=== PATIENT | male | born 1985 | race Hispanic/Latino ===

== ENCOUNTER 2017-10-15 10:18 | Inpatient (IN) | payer MEDICARE, MEDICAID ==
[2017-10-15 10:28] VITALS: BMI 22.6
--- NOTE | 2017-10-15 10:32 | ED PDOC ---
Arrival/HPI - General Time Seen by Provider: 10/15/17 10:24 Historian: Patient, EMS - History of Present Illness Narrative History of Present Illness (Text): 10/15/17 10:20 Valentin Carroll is a 32 year old male, whose past medical history include migraines and psoriatic arthritis, who presents to the emergency department by transfer from [facility] for psych admission. Patient needs evaluation for suicidal ideation. Patient denies HI and is currently asymptomatic. Time/Duration: Prior to Arrival Symptom Onset: Sudden Symptom Course: Unchanged Context: Other (transfer) Past Medical History - Provider Review Nursing Documentation Reviewed: Yes - Tetanus Immunization Tetanus Immunization: Unknown - Cardiac Hx Cardiac Disorders: No - Pulmonary Hx Respiratory Disorders: No Hx Asthma: Yes (Pro Air and Symacort) - Neurological Hx Neurological Disorder: No Hx Seizures: No - HEENT Hx HEENT Disorder: No - Renal Hx Renal Disorder: No - Endocrine/Metabolic Hx Endocrine Disorders: No - Hematological/Oncological Hx Blood Disorders: No - Integumentary Hx Dermatological Disorder: No Hx Psoriasis: No - Musculoskeletal/Rheumatological Hx Musculoskeletal Disorders: No - Gastrointestinal Hx Gastrointestinal Disorders: No Hx Diverticulitis: No - Genitourinary/Gynecological Hx Genitourinary Disorders: No - Psychiatric Hx Psychophysiologic Disorder: No Hx Anxiety: No Hx Depression: No Hx Substance Use: No - Surgical History Hx Amputation: No Hx Appendectomy: No Hx Cardiac Catheterization: No Hx Cholecystectomy: No Hx Coronary Stent: No Hx Gastric Bypass Surgery: No Hx Hysterectomy: No Hx Joint Replacement: No Hx Kidney Transplant: No Hx Liver Transplant: No Hx Mastectomy: No Hx Musculoskeletal Surgery: No Hx Open Heart Surgery: No Hx Orthopedic Surgery: No Hx Splenectomy: No Hx Valve Replacement: No - Anesthesia Hx Anesthesia: No - Suicidal Assessment Feels Threatened In Home Enviroment: No Family/Social History - Physician Review Nursing Documentation Reviewed: Yes Family/Social History: Unknown Family HX Smoking Status: Never Smoked Hx Alcohol Use: No Hx Substance Use: No Allergies/Home Meds Allergies/Adverse Reactions: Allergies haloperidol [From Haldol] Allergy (Verified 03/11/16 05:17) RASH haloperidol lactate [From Haldol] Allergy (Verified 03/11/16 05:17) RASH Penicillins Allergy (Verified 10/15/17 10:27) ANAPHYLAXIS Review of Systems - Review of Systems Constitutional: absent: Fevers Respiratory: absent: SOB Cardiovascular: absent: Chest Pain Gastrointestinal: absent: Abdominal Pain Genitourinary Male: absent: Dysuria Musculoskeletal: absent: Back Pain Skin: absent: Rash Neurological: absent: Headache Endocrine: absent: Diaphoresis Psychiatric: Suicidal Ideation. absent: Anxiety Physical Exam Vital Signs Reviewed: Yes Vital Signs Temp Pulse Resp BP Pulse Ox 10/15/17 10:28 98.2 F 93 H 18 127/74 99 Appearance: Positive for: Well-Appearing, Non-Toxic, Comfortable Pain Distress: None Mental Status: Positive for: Alert and Oriented X 3 - Systems Exam Head: Present: Atraumatic, Normocephalic Pupils: Present: PERRL Extroacular Muscles: Present: EOMI Conjunctiva: Present: Normal Neck: Present: Normal Range of Motion Respiratory/Chest: Present: Clear to Auscultation, Good Air Exchange. No: Respiratory Distress, Accessory Muscle Use Cardiovascular: Present: Regular Rate and Rhythm, Normal S1, S2. No: Murmurs Abdomen: Present: Normal Bowel Sounds. No: Tenderness, Distention, Peritoneal Signs Neurological: Present: GCS=15, CN II-XII Intact, Speech Normal Skin: Present: Warm, Dry, Normal Color. No: Rashes Psychiatric: Present: Alert, Oriented x 3, Normal Insight, Normal Concentration , Suicidal Ideation. No: Homicidal Ideation Medical Decision Making ED Course and Treatment: 10/15/17 Impression: 32 year old male with suicidal ideation, no HI. currently asymptomatic Differential Diagnosis included but are not limited to: psych Plan: -- Reassess and disposition Progress Notes: 10/15/17 Patients Chest X-ray and Labs were reviewed by Dr. Hallman, which determine patient is medically clear for transfer to [facility]. I reviewed the paperwork on arrival and patient is medically cleared for admission to Psych. Patient will be admitted under Dr. Emily boateng for evaluation. EKG: Ordered, reviewed, and independently interpreted the EKG. Rate : 80 BPM Rhythm : NSR Interpretation : No ST-segment elevations or depressions, no T-wave inversions, normal intervals. - Lab Interpretations I have reviewed the lab results: Yes - EKG Interpretation Interpreted by ED Physician: Yes Type: 12 lead EKG - Scribe Statement The provider has reviewed the documentation as recorded by the Tigist Dominguez Provider Scribe Attestation: All medical record entries made by the Scribe were at my direction and personally dictated by me. I have reviewed the chart and agree that the record accurately reflects my personal performance of the history, physical exam, medical decision making, and the department course for this patient. I have also personally directed, reviewed, and agree with the discharge instructions and disposition. Disposition/Present on Arrival - Present on Arrival Any Indicators Present on Arrival: No History of DVT/PE: No History of Uncontrolled Diabetes: No Urinary Catheter: No History Surgical Site Infection Following: None - Disposition Have Diagnosis and Disposition been Completed?: Yes Diagnosis: Suicidal ideation Disposition: HOSPITALIZED Disposition Time: 10:38 Patient Plan: Admission Condition: FAIR Referrals: Indu Bee, [Primary Care Provider] - Follow up with primary
[2017-10-15 10:37] VITALS: O2SAT 99
[2017-10-15] MEDS: buPROPion 150 mg/24 Hours XL Tab PO SCH (13:29)
[2017-10-15] MEDS: Divalproex 250 mg DR (BID formulation) PO SCH (15:23)
[2017-10-15] MEDS: Fluticasone-Salmeterol 100-50mcg Diskus IH SCH (17:59)
[2017-10-15] MEDS ORDERED: Fluticasone-Salmeterol 100-50mcg Diskus IH SCH (18:00)
--- NOTE | 2017-10-15 18:30 | PCM.BM ---
<Analisa Scott - Last Filed: 10/15/17 18:27> Treatment Plan Problems - Problems identified on initial assessmt Problem 1 Date Initiated: 10/15/17 Anxiety Date Initiated: 10/15/17 Time Initiated: 13:00 Assessment reference: NA Status: Active Priority: 1 Comment: Manifested by pacing on unit, restlessness. Altered Thoughts Date Initiated: 10/15/17 Time Initiated: 13:00 Assessment reference: NA Status: Active Priority: 2 Treatment assets and liabiliti Patient Assests: insightful, motivated, physically healthy, negotiates basic needs Patient Liabilities: relationship conflicts - Milieu Protocol Maintain good personal hygiene: daily Encourage regular showers, daily Assist patient to perform ADL's, every shift Remind patient to perform daily oral care Maintain personal safety: every shift Educate patient to report safety concerns to staff, every shift Monitor environment for contraband/sharps Medication safety: Monitor for expected outcome, potential side effects: every shift, Assess barriers to learning: every shift, Assess readiness for medication education: every shift Family Contact Family contact: Patient agrees to contact Family contact name: Montserrat Carroll Family contact comment: Mother: Montserrat Carroll Discharge/Continuing Care - Education Needs Education Needs: Patient Medication, Patient Coping Skills, Patient Anger Management skills, Patient Health Practices/Safety, Patient Personal Hygiene/ Grooming, Patient Aftercare Safety Plan <Leatha Hopkins - Last Filed: 10/16/17 16:22> - Diagnosis (1) Schizoaffective disorder Status: Chronic Interventions: Medication management 10/16/17 16:23 <Nikkie Pope - Last Filed: 10/20/17 14:32> Family Contact - Outside Agency [facility] involvment: Information-sharing Agency contact name: [facility] <Cherelle Bazan - Last Filed: 10/21/17 08:09> Family Contact Family involvement: Family/SO is involved Family contact: Patient agrees to contact Family contact name: Montserrat Carroll(mother)
[2017-10-15] MEDS: Divalproex 250 mg ER (ONCE DAILY formulation) PO SCH (21:09)
[2017-10-16] MEDS: Pantoprazole 40 mg EC Tab PO SCH (07:54)
[2017-10-16] MEDS: Fluticasone-Salmeterol 100-50mcg Diskus IH SCH ×2 (07:55→18:35)
[2017-10-16 08:13] LABS: BASO # 0.03 K/mm3 (0.0-2.0); BASO % 0.3 % (0.0-3.0); EOS # 0.2 (0.0-0.7); EOS % 2.1 % (1.5-5.0); GRAN # 4.93 (1.4-6.5); GRAN % 52.6 % (50.0-68.0); HEMOGLOBIN 14.8 g/dL (14.0-18.0); LYMPH # 3.3 (1.2-3.4); LYMPH % 34.7 % (22.0-35.0); MEAN CELL VOLUME 91.2 fl (80.0-105.0); MEAN CORPUSCULAR HEMOGLOBIN 30.3 pg (25.0-35.0); MEAN CORPUSCULAR HGB CONC 33.2 g/dl (31.0-37.0); MEAN PLATELET VOLUME 9.6 fl (7.0-11.0); MONO % 10.3 % (1.0-6.0); RBC 4.89 10^6/uL (3.5-6.1); WHITE BLOOD COUNT 9.4 10^3/ul (4.5-11.0)
[2017-10-16] MEDS: buPROPion 150 mg/24 Hours XL Tab PO SCH (08:25)
[2017-10-16] MEDS: Divalproex 250 mg DR (BID formulation) PO SCH ×2 (08:25→17:44)
[2017-10-16 08:30] LABS: ALB/GLOB RATIO 1.4 (1.1-1.8); ALBUMIN 4.5 g/dL (3.0-4.8); ALT/SGPT 32 U/L (7-56); AST/SGOT 22 U/L (17-59); BLOOD UREA NITROGEN 7 mg/dL (7-21); CALCIUM 10.5 mg/dL (8.4-10.5); GFR AFRICAN-AMERICAN > 60; GFR NON-AFRICAN AMERICAN > 60; HDL CHOLESTEROL 59 mg/dL (29-60)
[2017-10-16 08:41] LABS: LDL CHOLESTEROL 93 mg/dL (0-129)
[2017-10-16 08:42] LABS: FREE T4 0.93 ng/dL (0.78-2.19)
[2017-10-16] MEDS ORDERED: Meloxicam 7.5 MG TAB PO PRN (10:46)
[2017-10-16] MEDS ORDERED: Meloxicam 7.5 MG TAB PO SCH (16:00)
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
[2017-10-16] MEDS: Divalproex 250 mg ER (ONCE DAILY formulation) PO SCH (21:04)
--- NOTE | 2017-10-16 22:41 | CON ---
DATE: HISTORY OF PRESENT ILLNESS: I saw Valentin in the Psychiatric floor. We sat in this room, discussed the situation. He had lot to tell me. He is a 32-year-old man who came to the medical center from [facility] for Psych admission. He had suicidal ideation. He tells me that the places he has been staying, he sees terrific things. He is having posttraumatic stress, somebody jumped off a building and killed themselves, somebody decapitated another person and people around the places he is at are very devastating for him to be around and he is very concerned about where he is staying but he tells me the next place he goes will be better, he tells me. He is a 32-year-old man with suicidal thoughts, very upset about all of things he has been seeing and hearing at the place where he is staying. PAST MEDICAL HISTORY: Migraines, psoriatic arthritis, OCD, schizoaffective disorder, bipolar, depression, suicidal thoughts. He also has asthma. He is on ProAir and Symbicort. PAST SURGICAL HISTORY: No operations. FAMILY HISTORY: Unknown family history. SOCIAL HISTORY: Nonsmoker, nondrinker, no drugs. ALLERGIES: HE IS ALLERGIC TO HALDOL AND PENICILLINS. REVIEW OF SYSTEMS: No acute vision or hearing changes. No sore throat. No neck pain. No chest pain. No palpitations. No shortness of breath or coughing. No abdominal pain, nausea, vomiting, constipation, diarrhea. No problems urinating. No back pain. No rashes or ulcers. He does have a headache every now and then, when he thinks about what is going on. No sweating. He has some suicidal thoughts. No anxiety. PHYSICAL EXAMINATION: GENERAL: He is well appearing, nontoxic, comfortable right now, very animated about the things he is seeing and how it is affecting him. He is alert and oriented x3. VITAL SIGNS: He has 98.2 temp, 93 pulse, 18 respiratory rate, 127/74 blood pressure, 99% O2 sat on room air. HEENT: His head is atraumatic, normocephalic. Extraocular muscles are intact. Pupils equal and reactive to light and accommodation. Throat is moist. NECK: Supple. HEART: Regular rate. Normal S1 and S2. LUNGS: Clear to auscultation bilaterally. No wheezes, no rhonchi, no rales. ABDOMEN: Soft, nontender. Positive bowel sounds. No guarding. No rebound. No CVA tenderness. NEUROLOGIC: GCS is 15. Cranial nerves II through XII grossly intact. Speech is normal. He can stick out his tongue straight. He can close his eyes tight. He can put his arms over his head. He can follow my finger in an H pattern. Neurologically, he seems to be fairly intact. Equal strength bilaterally of extremities. He is alert and oriented x3. Normal insight. He is very animated about the things he is seeing and you could see that he is stressed over it. Questionable suicidal thoughts, no homicidal thoughts. SKIN: Warm and dry. No apparent rashes or ulcers. LYMPHATICS: Thyroid midline. No palpable or appreciable lymphadenopathy. LABORATORY DATA: He has also had blood test. He has 9.4 white count, 14.8 hemoglobin 44.6 hematocrit with 264 platelets. Sodium 144, potassium 3.9, BUN 7 creatinine 0.7, GFR is greater than 60, sugar is 88, calcium 10.5, total bilirubin is 0.3, AST is 42, ALT is 32, alk phos 51, total protein 7.8, albumin is 4.5, 3.3. Triglycerides is 78, cholesterol is 171, LDL is 93, HDL 59, TSH is 0.72. Toxicology ASSESSMENT AND PLAN: He is here for suicidal ideation. He has asthma, psoriatic arthritis, migraines, possible gastroesophageal reflux disease. He told me does not want to take Motrin, that he wanted meloxicam instead for his migraines, it works better. We will continue with aggressive treatment and care. He is on Abilify, Advair, Carafate, Cogentin, Depakote, Klonopin, meloxicam now, Protonix, Requip, Sonata, Tylenol, Wellbutrin. We will continue to follow the patient. Thank you very much for allowing me to participate in his care. Samuel Johnson DO [facility] HOSPITALMelisa
[2017-10-17 07:19] VITALS: RESP 20
[2017-10-17] MEDS: Divalproex 250 mg DR (BID formulation) PO SCH ×2 (08:57→17:29)
[2017-10-17] MEDS: buPROPion SR 150 MG TABLET PO SCH ×2 (08:58→17:28)
[2017-10-17] MEDS: Fluticasone-Salmeterol 100-50mcg Diskus IH SCH ×2 (08:58→17:29)
[2017-10-17] MEDS: Pantoprazole 40 mg EC Tab PO SCH (08:59)
--- NOTE | 2017-10-17 11:41 | PCM.PYCHPN ---
Psychiatric Progress Note - Psychiatric Progress Note Patient seen today, length of contact: 25 Problems Identified/Issues Discussed: anxiety and depression Medical Problems: - DSM 5 Symptoms Update: alert, oriented, remains fretful, anxious, minimizing the reasons why he was hospitalized, indicates hauditory hallucinationsof a nonthreatening or commanding nature Medication Change: No Medical Record Reviewed: Yes Consults ordered or reviewed: reviewed Mental Status Examination - Cognitive Function Orientation: Person, Place, Situation, Time Memory: Intact Attention: Poor Concentration: Poor Association: WNL Fund of Knowledge: WN Decription of patient's judgement and insights: limited insight and poor judgment - Mood Mood: Depressed, Anxious - Affect Affect: Broad - Speech Speech: Appropriate - Formal Thought Process Formal Thought Process: No Impairment - Suicidal Ideation Suicidal Ideation: No - Homicidal Ideation Homicidal Ideation: No Goal/Treatment Plan - Goal/Treatment Plan Progress Toward Problem(s) and Goals/Treatment Plan: I am concerned about patient's frequent hospitalizations. He was slated to go to a retirement in [facility] and to attend a DDD program. Will check on the viability of that presently Estimated Date of D/C: 10/20/17 - Smoking Cessation Smoking Cessation Initiated: No Reason for not providing: nonsmokernonsmoker
--- NOTE | 2017-10-17 12:16 | PN ---
DATE: SUBJECTIVE: I saw him in the psychiatric floor. He is comfortable this morning, slept fairly well, tells me he is feeling a little bit better. He is on Abilify, Advair, Carafate, Cogentin, Depakote, Klonopin, Motrin, Protonix, ReQuip, Sonata, Tylenol, and Wellbutrin. He is eating well, walking in the halls, feels comfortable there. PHYSICAL EXAMINATION VITAL SIGNS: He has a 97.3 temperature, 63 pulse, 97/36 blood pressure, 20 respiratory rate. HEENT: His head is atraumatic, normocephalic. HEART: Regular rate. LUNGS: Clear to auscultation. ABDOMEN: Soft. EXTREMITIES: No edema. LABORATORY DATA: He has 9.4 white count, 14.8 hemoglobin, 264,000 platelets. Sodium 144, potassium 3.9, BUN 7 creatinine 0.7, GFR is greater than 60, sugar is 88, calcium 10.5, total bilirubin is 0.3, AST is 22, ALT is 32, alkaline phosphatase 51, total protein 7.8, albumin is 4.5, globulin 3.3. Cholesterol is 171, TSH is 0.72. RPR is negative. ASSESSMENT AND PLAN: We will continue with aggressive treatment and care as per Psychiatry. He has suicidal ideation, depression, bipolar, schizoaffective disorder, obsessive compulsive disorder, gastroesophageal reflux disease, migraines, psoriatic arthritis and asthma. We will follow. Samuel Johnson DO
[2017-10-17] MEDS: Divalproex 250 mg ER (ONCE DAILY formulation) PO SCH (21:08)
[2017-10-18] MEDS: Pantoprazole 40 mg EC Tab PO SCH (09:35)
[2017-10-18] MEDS: buPROPion SR 150 MG TABLET PO SCH ×2 (09:37→16:38)
[2017-10-18] MEDS: Divalproex 250 mg DR (BID formulation) PO SCH ×3 (09:40→23:05)
[2017-10-18] MEDS: Fluticasone-Salmeterol 100-50mcg Diskus IH SCH ×2 (09:40→18:33)
[2017-10-18] MEDS ORDERED: HUMIRA 40 MG/0.8 ML SC SCH (10:00)
[2017-10-18] MEDS ORDERED: Home Med 1 UNIT SC SCH ×2 (10:00)
[2017-10-18] MEDS ORDERED: Tuberculin 5 Units/0.1 ml Inj ID ONE (13:00)
--- NOTE | 2017-10-18 13:16 | PN ---
DATE: SUBJECTIVE: I saw Valentin on the Psych Unit. He is eating well. He is participating, taking his medications, telling me he is feeling a little bit better. He is on Abilify, Advair, Carafate, Cogentin, Depakote, Klonopin, Motrin, Protonix, Requip, Sonata, Tylenol, Wellbutrin. PHYSICAL EXAMINATION: VITAL SIGNS: He has a 97.9 temp, 65 pulse, 97/68 blood pressure, 20 respiratory rate. HEENT: Head is atraumatic, normocephalic. HEART: Regular rate. LUNGS: Clear to auscultation. ABDOMEN: Soft. EXTREMITIES: No edema. LABORATORY DATA: His labs were on 10/16/2017 and he did well. Thyroid was good. ASSESSMENT AND PLAN: He is being seen by Psychiatry. We will continue with aggressive treatment and care as per Psychiatry. We will follow. I encouraged him to participate in groups and take the medication. He will let me know if he needs anything. Samuel Johnson DO
--- NOTE | 2017-10-19 08:13 | PN ---
DATE: 10/18/2017 SUBJECTIVE: The patient is a 32-year-old single white male with a schizoaffective disorder, who was admitted with mood lability and harboring homicidal thoughts towards his mother. He had earlier been brought to the [facility] emergency room and transferred here, partly because of the lack of bed availability, partly because the patient has been under my care for a number of years, and had been seen on the day prior to his emergency room visit, in my office. He has been living with his mother off and on, with frequent hospitalizations over these past few years due to varying behavioral and mood problems including mood lability, impulsive outbursts, suicidality. He has failed outpatient programs. Attempts have been made to keep him hospitalized and keep him living in sheltered living situations but unsuccessfully. The patient had not been seen by me for several weeks prior to our most recent visitation of last week because he had been hospitalized at [facility], one of the number of hospitalizations at that facility. In the past, he has also been hospitalized, possibly for several months at [facility]. The patient's baseline mental intelligence is also being questioned presently, with there being an element of intellectual impoverishment contributing to his behavior. Today the patient is alert, oriented, anxious, fretful, hyperactive, indecisive, asking me if he should be treated in a different country and if a different health system would be more helpful to his particular symptom complex/illness although he cannot define what this is, what his expectations would be, nor what the deficiencies are in our present health system. He is hearing voices . He is vague with regard to his intend towards his mother, although he cannot live with her. His mother herself has appeared to be a somewhat well-meaning but difficult person. She may have a psychiatric disorder, and according to the patient (it was not necessarily reliable), she has a history of psychiatric hospitalizations. At this present time, given the patient's lability, psychosis, poor impulsivity and poor insight, in addition to offering him the structure of our unit, increase his Depakote to 1500 mg daily, put him on p.r.n. of Seroquel, increase his baseline Klonopin stake while maintaining him on high-dose Abilify. It is my sense that the patient is "over hospitalized" at times, showing up in emergency rooms during times of conflict or problematic behavior, either at home or a day program he is attending, and the emergency room staff, being unfamiliar with the bizarreness of his behavior, "reflexively" admits him to the hospital as opposed to trying to temporize his situation, and thus to avoid hospitalizations. Nonetheless, the patient's present mental state clearly dictate that he be in a secured environment; the absence of which would put him and the public in danger. We are working on prearranged "housing" at a [facility] at [place], where he will also reportedly attend a [employer] sponsored program. Antonio Ramirez MD/ PhD
[2017-10-19] MEDS: buPROPion SR 150 MG TABLET PO SCH ×2 (08:43→17:46)
[2017-10-19] MEDS: Pantoprazole 40 mg EC Tab PO SCH (08:43)
[2017-10-19] MEDS: Divalproex 250 mg DR (BID formulation) PO SCH ×2 (08:44→21:30)
[2017-10-19] MEDS: Fluticasone-Salmeterol 100-50mcg Diskus IH SCH ×2 (08:44→17:48)
--- NOTE | 2017-10-19 12:15 | PN ---
DATE: SUBJECTIVE: I saw Valentin resting comfortably in bed. He slept well last night. He has no complaints. He is looking forward to breakfast. He is slowly getting better. He tells me he is on Abilify, Advair, Carafate, Cogentin, Depakote, Klonopin, Motrin, Protonix, Requip, Seroquel, Sonata, Tylenol, and Wellbutrin. PHYSICAL EXAMINATION: VITAL SIGNS: Temperature 98.9 , 57 pulse, 103/63 blood pressure, 20 respiratory rate. HEENT: Head is atraumatic, normocephalic. HEART: Regular rate. LUNGS: Clear to auscultation. ABDOMEN: Soft. EXTREMITIES: No edema. LABORATORY DATA: He has labs that were done on 10/16/2017, he did well. ASSESSMENT AND PLAN: Continue with aggressive treatment and care by Psychiatry. He has some suicidal ideation and depression. He wants to go to a different housing situation. We think it will be better for him, call me if anything change. Samuel Johnson DO
--- NOTE | 2017-10-20 03:17 | PN ---
DATE: Length of contact is 25 minutes. PROBLEMS IDENTIFIED: The patient has continued dependency, mood liability, depression, psychotic ideation, medical problems. MEDICAL PROBLEMS: Psoriasis, migraine, psoriatic arthritis, asthma (is on ProAir and Symbicort). DSM SYMPTOMS UPDATE: The patient remains fretful, anxious, dependant, attention seeking. The more I interact with this patient, the more I impressed by his intellectual impairment. He also seems child-like, preposterous in some of his insights into healthcare and how care should be meted out to him. Medication change none, medical record reviewed, yes. Consult order reviewed, yes. Reviewed Dr. Johnson's consultation. MENTAL STATUS EXAMINATION: The patient is alert, oriented to three spheres. He is aware of where he is in time. His memory is intact for the baseline that he usually exhibits. His intention is poor, as is his concentration. But his association is within normal limits. His fund of knowledge is limited. General, he has impaired insight and judgement. He remains anxious. His affect tends to be improved, but he appears to be somewhat withdrawn today. His speech is soft, but appropriate. He speaks of hearing of voices sometimes of interrogation. He is safe with regard to suicidality and has had some homicidal thoughts towards his mother. We are working on stabilizing the patient and hopefully sending him to a DDD associated program including living situation in [place]. MEDICATIONS: He presently is being maintained on Abilify 15 mg b.i.d., Depakote 1000 mg at bedtime and 500 mg a.m., Klonopin 0.5 mg t.i.d., Requip 1 mg at bedtime, Seroquel p.r.n., Sonata p.r.n., and Wellbutrin 150 mg b.i.d. LABORATORY RESULTS: Reviewed. VITAL SIGNS: Pulse 107, temperature 98.9, blood pressure 140/86, respiratory rate 20. Antonio Ramirez MD/ PhD
[2017-10-20] MEDS: Pantoprazole 40 mg EC Tab PO SCH (08:28)
[2017-10-20] MEDS: Fluticasone-Salmeterol 100-50mcg Diskus IH SCH ×2 (08:39→17:25)
[2017-10-20] MEDS: Divalproex 250 mg DR (BID formulation) PO SCH ×2 (08:43→21:09)
[2017-10-20] MEDS: buPROPion SR 150 MG TABLET PO SCH ×2 (08:50→16:48)
--- NOTE | 2017-10-20 13:31 | PN ---
DATE: SUBJECTIVE: I saw him in the psychiatric unit. He is resting in bed comfortably. He tells me he is doing fairly okay. He gets headaches. He is asking for some medication; already has Motrin orders, he will take that, he agrees. He is on Abilify, Advair, Carafate, Cogentin, Depakote, Klonopin, Motrin, Protonix, ReQuip, Seroquel, Sonata, Tylenol, Wellbutrin. OBJECTIVE VITAL SIGNS: He has a 97.2 temperature, 61 pulse, 108/60 blood pressure, 20 respiratory rate. HEENT: Head is atraumatic, normocephalic HEART: Regular rate. LUNGS: Clear to auscultation. ABDOMEN: Soft. EXTREMITIES: No edema. Overall, he is about the same, may be mildly improved. He tells me he is doing better. He has a few issues going on, suicidal ideation, depression, he has got migraines and auditory hallucinations. Hopefully, he will continue to improve and will be able to be sent back to his half-way. Samuel Johnson DO
--- NOTE | 2017-10-20 21:15 | PCM.PYCHPN ---
Psychiatric Progress Note - Psychiatric Progress Note Patient seen today, length of contact: 25 Patient Chief Complaint: Depression and anxiety Problems Identified/Issues Discussed: anxiety and depression Medical Problems: - Diagnostic Results: Reviewed DSM 5 Symptoms Update: Remains emotionally labile, disorganized at times, dependent, clean getting, possibly delusional, possibly having auditory hallucinations. Medication Change: No Medical Record Reviewed: Yes Mental Status Examination - Cognitive Function Orientation: Person, Place, Situation, Time Memory: Intact Attention: Poor Concentration: Poor Association: WNL Fund of Knowledge: WN Decription of patient's judgement and insights: limited insight and poor judgment - Mood Mood: Depressed, Anxious, Other - Affect Affect: Broad, Other - Speech Speech: Appropriate - Formal Thought Process Formal Thought Process: Hallucinations - Suicidal Ideation Suicidal Ideation: No - Homicidal Ideation Homicidal Ideation: No Goal/Treatment Plan - Goal/Treatment Plan Progress Toward Problem(s) and Goals/Treatment Plan: I am concerned about patient's frequent hospitalizations. He was slated to go to a [facility] in [facility] and to attend a DDD program. Will check on the viability of that presently Estimated Date of D/C: 10/20/17
--- NOTE | 2017-10-20 21:16 | PCM.BM ---
Treatment Plan Problems - Problems identified on initial assessmt Problem 1 Date Initiated: 10/15/17 Anxiety Date Initiated: 10/15/17 Time Initiated: 13:00 Assessment reference: NA Status: Active Priority: 1 Comment: Manifested by pacing on unit, restlessness. Altered Thoughts Date Initiated: 10/15/17 Time Initiated: 13:00 Assessment reference: NA Status: Active Priority: 2 Treatment assets and liabiliti Patient Assests: insightful, motivated, physically healthy, negotiates basic needs Patient Liabilities: relationship conflicts - Diagnosis (1) Schizoaffective disorder Status: Chronic Interventions: Medication management 10/16/17 16:23 - Milieu Protocol Maintain good personal hygiene: daily Encourage regular showers, daily Assist patient to perform ADL's, every shift Remind patient to perform daily oral care Maintain personal safety: every shift Educate patient to report safety concerns to staff, every shift Monitor environment for contraband/sharps Medication safety: Monitor for expected outcome, potential side effects: every shift, Assess barriers to learning: every shift, Assess readiness for medication education: every shift Milieu Narrative: I am concerned about patient's frequent hospitalizations. He was slated to go to a jail in [facility] and to attend a DDD program. Will check on the viability of that presently Family Contact Family involvement: Family/SO is involved Family contact: Patient agrees to contact Family contact name: Montserrat Carroll(mother) guardian - Outside Agency [facility] involvment: Information-sharing Agency contact name: [facility] - Education Needs Education Needs: Patient Medication, Patient Coping Skills, Patient Anger Management skills, Patient Health Practices/Safety, Patient Personal Hygiene/ Grooming, Patient Aftercare Safety Plan - Treatment Team Participation Patient/Family/SO Statement: I am concerned about patient's frequent hospitalizations. He was slated to go to a jail in [facility] and to attend a DDD program. Will check on the viability of that presently
[2017-10-21] MEDS: Fluticasone-Salmeterol 100-50mcg Diskus IH SCH ×2 (08:06→17:45)
[2017-10-21] MEDS: Pantoprazole 40 mg EC Tab PO SCH (08:06)
[2017-10-21] MEDS: buPROPion SR 150 MG TABLET PO SCH ×2 (08:07→15:54)
[2017-10-21] MEDS: Divalproex 250 mg DR (BID formulation) PO SCH ×2 (08:08→21:01)
--- NOTE | 2017-10-21 14:02 | PCM.PYCHPN ---
Psychiatric Progress Note - Psychiatric Progress Note Patient seen today, length of contact: 25 Patient Chief Complaint: Depression and anxiety Problems Identified/Issues Discussed: anxiety and depression Medical Problems: - Diagnostic Results: Reviewed DSM 5 Symptoms Update: Patient seems more relaxed and less agitated today I have reviewed with patient his self punitive nature, his mood lability, is confusing his feelings, his need to treat himself and others more kindly Medication Change: No Medical Record Reviewed: Yes Consults ordered or reviewed: reviewed Mental Status Examination - Cognitive Function Orientation: Person, Place, Situation, Time Memory: Intact Attention: WNL Concentration: WNL Association: [facility] Fund of Knowledge: [facility] Decription of patient's judgement and insights: limited insight and poor judgment - Mood Mood: Anxious, Neutral, Other - Affect Affect: Broad, Other - Speech Speech: Appropriate - Formal Thought Process Formal Thought Process: Other - Suicidal Ideation Suicidal Ideation: No - Homicidal Ideation Homicidal Ideation: No Goal/Treatment Plan - Goal/Treatment Plan Progress Toward Problem(s) and Goals/Treatment Plan: I am concerned about patient's frequent hospitalizations. He was slated to go to a jail in [facility] and to attend a DDD program. Will check on the viability of that presently Today he seems calmer, more receptive to suggestion and observation and less self punitive. I have reviewed his situation with social work and with mother. Patient is pending acceptance to a DDD supervised jail and program in [place] early next week if patient can hold himself together. Estimated Date of D/C: 10/20/17
--- NOTE | 2017-10-21 15:49 | OP ---
DATE: 10/21/2017 SUBJECTIVE: I saw him resting comfortably in bed. He slept fairly well. He is on Abilify, Advair, Carafate, Cogentin, Depakote, Klonopin, Motrin, Protonix, ReQuip, Seroquel, Sonata, Tylenol and Wellbutrin. He is looking forward to breakfast. He is a little bit anxious. PHYSICAL EXAMINATION: VITAL SIGNS: He has a 97.3 temp, 69 pulse, 86/49 blood pressure, 20 respiratory rate. HEENT: His head is atraumatic, normocephalic. HEART: Regular rate. LUNGS: Clear to auscultation. ABDOMEN: Soft. EXTREMITIES: No edema. ASSESSMENT AND PLAN: He is comfortable. No real complaints. Seen this morning. A little anxious about his medications, but he is getting them and he has them there, p.r.n. if he needs them. I encouraged him to participate in groups, eat his food, go for walks around the floor. He was here for suicidal ideation, depression, migraines. I will keep a close eye on him and we will follow. Samuel Johnson DO
[2017-10-22] MEDS: Fluticasone-Salmeterol 100-50mcg Diskus IH SCH ×2 (09:11→18:03)
[2017-10-22] MEDS: buPROPion SR 150 MG TABLET PO SCH ×2 (09:12→18:02)
[2017-10-22] MEDS: Pantoprazole 40 mg EC Tab PO SCH (09:12)
[2017-10-22] MEDS: Divalproex 250 mg DR (BID formulation) PO SCH ×2 (09:13→21:42)
--- NOTE | 2017-10-22 09:24 | PCM.PYCHPN ---
Psychiatric Progress Note - Psychiatric Progress Note Patient seen today, length of contact: 25 min Patient Chief Complaint: "feeling better" Problems Identified/Issues Discussed: I reviewed recent notes and met with patient at bedside. Patient remembers me from our interview last weekend. He continues to be alert and well oriented to circumstances. He reports feeling better and still appears anxious. Indicates that he is sleeping well. Denies major side effects from his medications though complains of dry mouth. His thought process is coherent and patient denies perceptual disturbance. Staff notes indicate the patient continues to appear anxious and paranoid. Attending groups. He can be labile, needy and demanding but more manageable and redirectable. Limit setting in effect. There were no behavioral issues overnight Diagnostic Results: Schizoaffective Disorder OCD Dependant Personality Disorder Generalized Anxiety Disorder r/o PTSD Medication Change: No Medical Record Reviewed: Yes Mental Status Examination - Cognitive Function Orientation: Person, Place, Situation, Time Memory: Intact Attention: WNL Concentration: WNL Association: WNL Fund of Knowledge: WNL - Mood Mood: Anxious ("feeling better"), Neutral, Other - Affect Affect: Broad, Other - Speech Speech: Appropriate - Formal Thought Process Formal Thought Process: No Impairment - Suicidal Ideation Suicidal Ideation: No - Homicidal Ideation Homicidal Ideation: No Goal/Treatment Plan - Goal/Treatment Plan Progress Toward Problem(s) and Goals/Treatment Plan: c/w current tx and plan No new weekend labs thus far Vitals reviewed and noted below: Selected Entries 10/22/17 07:38 Temperature 97.6 F Pulse Rate 57 L Respiratory 20 Rate Blood Pressure 96/63 L PRIOR FLOOR LABS NOTED BELOW: Laboratory Results - last 24 hr 10/16/17 10/16/17 10/16/17 07:00 07:00 07:00 WBC 9.4 RBC 4.89 Hgb 14.8 Hct 44.6 MCV 91.2 MCH 30.3 MCHC 33.2 RDW 14.0 Plt Count 264 MPV 9.6 Gran % 52.6 Lymph % (Auto) 34.7 [place] % (Auto) 10.3 H Eos % (Auto) 2.1 Baso % (Auto) 0.3 Gran # 4.93 Lymph # (Auto) 3.3 [place] # (Auto) 1.0 H Eos # (Auto) 0.2 Baso # (Auto) 0.03 Sodium 144 Potassium 3.9 Chloride 102 Carbon Dioxide 29 Anion Gap 17 BUN 7 Creatinine 0.7 L Est GFR ( Amer) > 60 Est GFR (Non-Af Amer) > 60 Random Glucose 88 Hemoglobin A1c 5.1 Calcium 10.5 Total Bilirubin 0.3 AST 22 ALT 32 Alkaline Phosphatase 51 Total Protein 7.8 Albumin 4.5 Globulin 3.3 Albumin/Globulin Ratio 1.4 Triglycerides 78 Cholesterol 171 LDL Cholesterol Direct 93 HDL Cholesterol 59 Free T4 TSH 3rd Generation Valproic Acid 10/16/17 10/16/17 07:00 07:00 WBC RBC Hgb Hct MCV MCH MCHC RDW Plt Count MPV Gran % Lymph % (Auto) [place] % (Auto) Eos % (Auto) Baso % (Auto) Gran # Lymph # (Auto) [place] # (Auto) Eos # (Auto) Baso # (Auto) Sodium Potassium Chloride Carbon Dioxide Anion Gap BUN Creatinine Est GFR ( Amer) Est GFR (Non-Af Amer) Random Glucose Hemoglobin A1c Calcium Total Bilirubin AST ALT Alkaline Phosphatase Total Protein Albumin Globulin Albumin/Globulin Ratio Triglycerides Cholesterol LDL Cholesterol Direct HDL Cholesterol Free T4 0.93 TSH 3rd Generation 0.72 Valproic Acid 59 Estimated Date of D/C: 10/20/17
--- NOTE | 2017-10-22 13:47 | PN ---
DATE: SUBJECTIVE: I saw Valentin walking around the Psych floor. He is doing a little bit better. He is on Abilify, Advair, Carafate, Cogentin, Depakote, Klonopin, Motrin, Protonix, Requip, Seroquel, Sonata, Tylenol, Wellbutrin. He has no real complaints through this morning. He went over his diagnoses with me. He is eating okay. PHYSICAL EXAMINATION: VITAL SIGNS: 97.6 temp, 57 pulse, 96/63 blood pressure, 20 respiratory rate. HEENT: His head is atraumatic, normocephalic HEART: Regular rate. LUNGS: Decreased breath sounds, but clear. ABDOMEN: Soft. EXTREMITIES: No edema. ASSESSMENT AND PLAN: For the most part, he is quite comfortable. I do think he is improved psychologically. I am hoping that he continues. We will continue with aggressive treatment and care. Hopefully, his anxiety and paranoia will lessen and he will do better in the groups. He has schizoaffective disorder, obsessive-compulsive disorder, dependent personality disorder, generalized anxiety disorder and he tells me he has got posttraumatic stress disorder. I encouraged him to participate, take his medications. Samuel Johnson DO
[2017-10-23] MEDS: Divalproex 250 mg DR (BID formulation) PO SCH ×2 (09:19→21:47)
[2017-10-23] MEDS: Pantoprazole 40 mg EC Tab PO SCH (09:19)
[2017-10-23] MEDS: buPROPion SR 150 MG TABLET PO SCH ×2 (09:20→14:59)
[2017-10-23] MEDS: Fluticasone-Salmeterol 100-50mcg Diskus IH SCH ×2 (09:20→17:50)
--- NOTE | 2017-10-23 11:19 | PCM.PYCHPN ---
Psychiatric Progress Note - Psychiatric Progress Note Patient seen today, length of contact: 25 min Patient Chief Complaint: "indifferent" Problems Identified/Issues Discussed: I reviewed recent notes and met with patient at bedside. He continues to be alert and well oriented to circumstances. He reports feeling better but then states "I guess I am feeling better, that's what everyone keeps telling me". He doesn't feel hopeful, patient feels "indifferent". Patient appears anxious to me. Patient still reports that he is sleeping well. Denies major side effects from his medications though still complains of dry mouth. His thought process is coherent and patient denies perceptual disturbance. Staff notes indicate the patient continues to appear anxious and paranoid. Required 1:1 attention/reassurance from multiple staff members yesterday. Still sad about not having a girlfriend or someone he can relate to. Attending groups. Patient can be labile, needy and demanding but more manageable and redirectable. Limit setting in effect. There were no major behavioral issues over the weekend though staff notes indicate he became a little agitated when they searched the plastic bag his mother brought for him yesterday. Diagnostic Results: Schizoaffective Disorder OCD Dependant Personality Disorder Generalized Anxiety Disorder r/o PTSD Medication Change: No Medical Record Reviewed: Yes Mental Status Examination - Cognitive Function Orientation: Person, Place, Situation, Time Memory: Intact Attention: WNL Concentration: WNL Association: WNL Fund of Knowledge: WNL - Mood Mood: Anxious ("feeling better"), Neutral ("indifferent") - Affect Affect: Broad, Other (anxious) - Speech Speech: Appropriate - Formal Thought Process Formal Thought Process: No Impairment - Suicidal Ideation Suicidal Ideation: No - Homicidal Ideation Homicidal Ideation: No Goal/Treatment Plan - Goal/Treatment Plan Progress Toward Problem(s) and Goals/Treatment Plan: c/w current tx and plan No new weekend labs Appreciate f/u by Dr. Johnson on 10/22/17 Vitals reviewed and noted below: Selected Entries 10/23/17 07:15 Temperature 97.9 F Pulse Rate 56 L Respiratory 20 Rate Blood Pressure 92/58 L PRIOR FLOOR LABS NOTED BELOW: Laboratory Results - last 24 hr 10/16/17 10/16/17 10/16/17 07:00 07:00 07:00 WBC 9.4 RBC 4.89 Hgb 14.8 Hct 44.6 MCV 91.2 MCH 30.3 MCHC 33.2 RDW 14.0 Plt Count 264 MPV 9.6 Gran % 52.6 Lymph % (Auto) 34.7 [place] % (Auto) 10.3 H Eos % (Auto) 2.1 Baso % (Auto) 0.3 Gran # 4.93 Lymph # (Auto) 3.3 [place] # (Auto) 1.0 H Eos # (Auto) 0.2 Baso # (Auto) 0.03 Sodium 144 Potassium 3.9 Chloride 102 Carbon Dioxide 29 Anion Gap 17 BUN 7 Creatinine 0.7 L Est GFR ( Amer) > 60 Est GFR (Non-Af Amer) > 60 Random Glucose 88 Hemoglobin A1c 5.1 Calcium 10.5 Total Bilirubin 0.3 AST 22 ALT 32 Alkaline Phosphatase 51 Total Protein 7.8 Albumin 4.5 Globulin 3.3 Albumin/Globulin Ratio 1.4 Triglycerides 78 Cholesterol 171 LDL Cholesterol Direct 93 HDL Cholesterol 59 Free T4 TSH 3rd Generation Valproic Acid 10/16/17 10/16/17 07:00 07:00 WBC RBC Hgb Hct MCV MCH MCHC RDW Plt Count MPV Gran % Lymph % (Auto) [place] % (Auto) Eos % (Auto) Baso % (Auto) Gran # Lymph # (Auto) [place] # (Auto) Eos # (Auto) Baso # (Auto) Sodium Potassium Chloride Carbon Dioxide Anion Gap BUN Creatinine Est GFR ( Amer) Est GFR (Non-Af Amer) Random Glucose Hemoglobin A1c Calcium Total Bilirubin AST ALT Alkaline Phosphatase Total Protein Albumin Globulin Albumin/Globulin Ratio Triglycerides Cholesterol LDL Cholesterol Direct HDL Cholesterol Free T4 0.93 TSH 3rd Generation 0.72 Valproic Acid 59 Estimated Date of D/C: 10/20/17
--- NOTE | 2017-10-23 12:10 | PN ---
DATE: SUBJECTIVE: I saw him in the psychiatric unit today. He is walking in the [place]. He is feeling well. Going to group. He is not sure these groups are right for him. He does not want to feel paranoid. MEDICATIONS: He is on Abilify, Advair, Carafate, Cogentin, Depakote, Klonopin, Motrin, Protonix, Requip, Seroquel, Sonata, Tylenol and Wellbutrin. PHYSICAL EXAMINATION: VITAL SIGNS: 97.9 temp, 56 pulse, 92/58 blood pressure, 20 respiratory rate. HEENT: His head is atraumatic, normocephalic. HEART: Regular rate. LUNGS: Clear to auscultation. ABDOMEN: Soft. EXTREMITIES: No edema. ASSESSMENT AND PLAN: He is walking around, feeling fairly well for the most part. He definitely improved since he came in and also he is going to ever get much better than this. This could be his baseline. He also tells me that he is being discharged tomorrow. I am not sure if that is true or not. He is here for suicidal ideation, depression, posttraumatic stress disorder, coronary artery disease, bipolar, schizoaffective disorder, obsessive-compulsive disorder, auditory hallucinations and he has migraines and hopefully he will continue to improve as per Psychiatry about discharging. We will follow. I gave him lots of encouragement. Samuel Johnson DO
[2017-10-24 07:09] VITALS: BP 95/55; PULSE 57; TEMP 98.4
[2017-10-24] MEDS: Fluticasone-Salmeterol 100-50mcg Diskus IH SCH (08:10)
[2017-10-24] MEDS: Divalproex 250 mg DR (BID formulation) PO SCH (08:10)
[2017-10-24] MEDS: Pantoprazole 40 mg EC Tab PO SCH (08:11)
[2017-10-24] MEDS: buPROPion SR 150 MG TABLET PO SCH (08:11)
--- NOTE | 2017-10-24 11:03 | PN ---
DATE: SUBJECTIVE: He is resting comfortably in bed. He slept fairly well. He is telling me he is going home today. I am not sure if that is true or not, but he is on Abilify, Advair, Carafate, Cogentin, Depakote, Klonopin, Motrin, Protonix, Requip, Seroquel, Sonata, Tylenol, Wellbutrin. He is definitely improved. I do not know how much better he is going to get overall. PHYSICAL EXAMINATION: VITAL SIGNS: He has 98.4 temperature, 57 pulse, 95/55 blood pressure, 20 respiratory rate. HEENT: His head is atraumatic, normocephalic. HEART: Regular rate. LUNGS: Clear to auscultation. ABDOMEN: Soft. EXTREMITIES: No edema. ASSESSMENT AND PLAN: Overall, I do think he is improved psychologically and mentally. I think he is at his best. Hopefully, he will continue to stay this way and be in a good surrounding, so, he does not have any exacerbations of thoughts. Hopefully, he will take his medications correctly and I encouraged him to do that. Valentin Carroll, who was here for suicidal ideation, depression, post traumatic stress disorder, migraines, auditory hallucinations, obsessive-compulsive disorder, schizoaffective disorder, bipolar and hopefully, do well. Samuel Johnson DO
--- NOTE | 2017-10-24 12:19 | PCM.PYCHDC ---
Mental Status Examination - Mental Status Examination Orientation: Place, Situation Memory: Intact Mood: Anxious, Neutral Affect: Flat Speech: Appropriate, Soft Attention: WNL Concentration: WNL Association: WNL Fund of Knowledge: WNL Formal Thought Process: Hallucinations, Paranoia Description of patient's judgement and insight: limited insight and poor judgment Suicidal Ideation: No Current Homicidal Ideation?: No Discharge Summary - Discharge Note Reason for Hospitalization: Depression, anxiety, and homicidal thoughts towards mother. Psychiatric History (includes Medical, Family, Personal Hx): Long psychiatric history with multiple hospitalizations. More frequent in r Consultations:: List each consultation separately and include: 1. Reason for request. 2. Findings. 3. Follow-up Consultations: reviewed Summary of Hospital Course include:: 1. Description of specific treatment plan utilized for patients during their course of treatmen. 2. Summarize the time- course for resolution of acute symptoms and/or regressed behaviors Summary of Hospital Course: treatment for psoriatic eczema. Mood and affect improved was not homicidal suicidal or overtly psychotic at time of discharge. Was on the medical consultation of Dr. 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 He was slated to go to a [facility] in [facility] and to attend a DDD program. Will check on the viability of that presently Today he seems calmer, more receptive to suggestion and observation and less self punitive. I have reviewed his situation with social work and with mother. Patient is pending acceptance to a DDD supervised [facility] and program in [place] early next week if patient can hold himself together. - Smoking Cessation Smoking Cessation Medication prescribed: No - Antipsychotic Medications Pt discharged on 2 or more routine antipsychotic medications: No
== END 2017-10-24 12:18 | disposition home or self-care (01) | DRG 885 ==
LOC: ED 10:18 → ERH 10:32 → PSYC 11:51
PROVIDERS: ADMIT Psychiatry & Neurology Psychiatry; ATTEND Psychiatry & Neurology Addiction Medicine
PROC: GZ3ZZZZ Medication Management (ICD-10-PCS; principal; 2017-10-15)
DX: F25.9 Schizoaffective disorder, unspecified (principal); R45.851 Suicidal ideations; L40.50 Arthropathic psoriasis, unspecified; F41.1 Generalized anxiety disorder; F60.7 Dependent personality disorder; F81.9 Developmental disorder of scholastic skills, unspecified; F42.9 Obsessive-compulsive disorder, unspecified; G43.909 Migraine, unspecified, not intractable, without status migrainosus; J45.909 Unspecified asthma, uncomplicated; K21.9 Gastro-esophageal reflux disease without esophagitis; F43.10 Post-traumatic stress disorder, unspecified; I25.10 Atherosclerotic heart disease of native coronary artery without angina pectoris